=== PATIENT | male | born 1990 | race Caucasian/White ===

== ENCOUNTER 2023-07-28 09:02 | Outpatient (CLI) | payer BC, SELFPAY ==
--- NOTE | 2023-07-28 09:09 | MR_ITS ---
WS: [id number] MRI LUMBAR SPINE NONCONTRAST TECHNIQUE: Sagittal T1, T2 and STIR imaging. Axial T1 and T2 imaging. CLINICAL INFORMATION: CHRONIC LOW BACK PAIN COMPARISON: None. FINDINGS: Mild lumbar curve. No acute compression. No high-grade central canal stenosis. L5 is partially sacral ized. T12-L1: Mild annular bulging. Tiny central protrusion. Spinal canal and foramen are patent. Mild face t arthropathy. L1-L2: Mild annular bulging. Mild facet arthropathy. Spinal canal and foramen are patent. L2-L3: No significant disc bulging. Mild facet arthropathy. Mild RIGHT and no significant LEFT forami nal narrowing. L3-L4: Mild annular bulging with mild central canal stenosis. Slight effacement of the ventral thecal sac. Slight impingement traversing L4 nerve roots bilaterally. Mild facet arthropathy. Tiny RIGHT fo raminal protrusion with mild RIGHT greater than LEFT foraminal narrowing. L4-L5: Mild annular bulging with slight impingement on the traversing L5 nerve roots bilaterally. Mod erate facet arthropathy. Mild to moderate RIGHT foraminal narrowing. L5-S1: Ankylosis of the L5 disc space with partially sacralized L5. Spinal canal and foramen are mackenzie nt. Mild facet arthropathy. Visualized pelvic bony structures: Normal. Paravertebral soft tissues: Normal. IMPRESSION: 1. Mild lumbar curve. No acute compression. No high-grade central canal stenosis. 2. Mild central canal stenosis L3-L4 and L4-L5 with mild annular bulging and narrowing of the subart icular recess bilaterally. 3. Small RIGHT foraminal protrusions L3-L4 L4-L5 with mild RIGHT L3-4 and moderate RIGHT L4-5 forami nal narrowing. 4. Mild to moderate facet arthropathy L3-L4 and moderate facet arthropathy L4-5. 5. L5 is partially sacralized. 6. Tiny central protrusions in the cervical spine on the [employer] field examiner imaging worse at C4-C5 C5-C6 and C6-C 7.
== END 2023-07-28 09:03 | disposition home or self-care (01) ==
LOC: RAD 09:02
PROVIDERS: Visit Provider Family Medicine
DX: M48.061 Spinal stenosis, lumbar region without neurogenic claudication (principal); M51.36 Other intervertebral disc degeneration, lumbar region; M51.26 Other intervertebral disc displacement, lumbar region; M47.816 Spondylosis without myelopathy or radiculopathy, lumbar region; G89.29 Other chronic pain
CPT/HCPCS: 72148